=== PATIENT | female | born 1955 | race African-American/Black ===

== ENCOUNTER 2016-10-25 05:22 | Day surgery (SDC) | payer OTHER ==
[2016-10-18 14:43] VITALS: BMI 23.8
[2016-10-25] MEDS ORDERED: MIDAZOLAM HCL 2 MG/2 ML SINGLE DOSE VIAL ONE (10:03)
[2016-10-25] MEDS ORDERED: PROPOFOL 20 ML ONE (10:03)
[2016-10-25] MEDS ORDERED: ceFAZolin SODIUM 1 GM VIAL IVPB ONE (10:42)
[2016-10-25] MEDS ORDERED: ceFAZolin SODIUM 1 GM VIAL ONE (10:43)
[2016-10-25] MEDS ORDERED: ACETAMINOPHEN 1000 MG/100 ML VIAL (NON FORMULARY) IVPB ONE (10:47)
[2016-10-25] MEDS ORDERED: ONDANSETRON 4 MG/2 ML VIAL IVPUSH PRN (10:47)
[2016-10-25] MEDS ORDERED: ACETAMINOPHEN 1000 MG/100 ML VIAL (NON FORMULARY) IVPB PRN (10:47)
[2016-10-25] MEDS ORDERED: oxyCODONE HCL 5 MG TABLET PO PRN (10:47)
[2016-10-25] MEDS ORDERED: LACTATED RINGERS SOLUTION 1,000 ML IV SCH (11:00)
[2016-10-25] MEDS ORDERED: IBUPROFEN 400 MG TABLET (FP) PO PRN (11:14)
[2016-10-25 11:23] VITALS: TEMP 98.8
--- NOTE | 2016-10-25 11:26 | OP ---
DATE OF OPERATION: 10/25/2016 PREOPERATIVE DIAGNOSIS: Postmenopausal bleeding. POSTOPERATIVE DIAGNOSIS: Postmenopausal bleeding. SURGEON: Marko Dean MD ANESTHESIA: General. OPERATION: Hysteroscopy and dilatation and curettage. DESCRIPTION OF PROCEDURE: Patient was prepped and draped under general anesthesia in lithotomy position. Examination under anesthesia revealed vagina clean, cervix closed, was top normal, adnexa negative. During the procedure, weighted speculum applied in the vagina. Cervix grasped with tenaculum. Cervical canal was dilated up to number 31 Hegar. Uterine cavity was 8 cm. At this time, hysteroscopy was done with the help of saline media. Entire endocervical and endometrial cavity evaluated. There was some hyperplasia. After hysteroscopy finished then, first endocervical curetting was done. A small amount of tissue was removed. An endometrial curetting was done, and a moderate amount of tissue with a small polyp was removed. Estimated blood loss was 10 mL. Patient tolerated the procedure, was sent to recovery room in good condition. Ivan [id number]
[2016-10-25 14:36] VITALS: BP 105/60; PULSE 67
--- NOTE | 2016-10-28 11:46 | PATH ---
Surgical Pathology Report Patient Name: TATUM PEREZ [facility]. Rec. #: [id number] /Age/Gender: 1955 (Age: 61) / F Account: [id number] Location: [facility] Taken: 10/25/2016 Received: 10/25/2016 Reported: 10/28/2016 Physicians: Cha Dean M.D. Specimen(s) Received A: ENDOCERVICAL CURETTINGS B: ENDOMETRIAL CURETTINGS Clinical History Postmenopausal bleeding Final Diagnosis A. ENDOCERVIX, CURETTAGE: FRAGMENTS OF BENIGN ENDOCERVICAL TISSUE. FRAGMENTS OF BENIGN ENDOMETRIUM. B. ENDOMETRIUM, CURETTAGE: POLYPOID FRAGMENTS OF INACTIVE ENDOMETRIUM WITH DILATED GLANDS, DENSE STROMA AND PROMINENT BLOOD VESSELS, MOST CONSISTENT WITH FRAGMENTS OF ENDOMETRIAL POLYPS. SCANT FRAGMENTS OF BENIGN ENDOCERVICAL TISSUE. Electronically Signed Doug Johnson M.D. Gross Description A. Received in formalin labeled "endocervical curettings" is a 1.5 x 1.0 x 0.2 cm aggregate of blood-tinged mucus, possibly containing soft tissue fragments. The formalin is filtered and the specimen is entirely submitted in one cassette. B. Received in formalin labeled "endometrial curettings" is a 1.8 x 1.3 x 0.3 cm aggregate of eid-red soft tissue fragments. The formalin is filtered and the specimen is entirely submitted in one cassette. 10/25/2016 saudi10/25/2016
== END 2016-10-25 13:20 | disposition home or self-care (01) ==
LOC: JASU-SURG 05:22
PROVIDERS: ATTEND Obstetrics & Gynecology
PROC: 0UDB8ZX Extraction of Endometrium, Via Natural or Artificial Opening Endoscopic, Diagnostic (ICD-10-PCS; principal; 2016-10-25 10:00)
DX: N95.0 Postmenopausal bleeding (principal)
CPT/HCPCS: 86850; 86900; 86901; 88305-TC; 94760

== ENCOUNTER 2017-05-21 08:00 | Emergency (ER) | payer OTHER ==
[2017-05-21 08:10] VITALS: BMI 27.4
[2017-05-21 08:47] VITALS: TEMP 97.7
--- NOTE | 2017-05-21 08:49 | PDOC ---
History of Present Illness - General History Source: Patient Exam Limitations: No Limitations <Bandar Pederson - Last Filed: 05/21/17 11:32> <Herrera Forman - Last Filed: 05/21/17 14:55> - General Chief Complaint: Chest Pain Stated Complaint: CHEST PAIN Time Seen by Provider: 05/21/17 08:14 - History of Present Illness Initial Comments: 05/21/17 09:13 The patient is a 61 year old female, with a significant past medical history of HTN, who presents to the emergency department with chest pain. The patient reports having the acute onset of chest pain this morning after drinking green tea. The patient describes her pain as a burning sensation, ranking it a 5/10 in pain intensity. She denies recent fevers, chills, headache or dizziness. She denies recent nausea, vomit, diarrhea or constipation. She denies recent dysuria, frequency, urgency or hematuria. She denies shortness of breath. Allergies: NKA Past surgical history: None reported. Social history: Nonsmoker. Denies EtOH use and recreational drug use. (Bandar Pederson) Past History <Bandar Pederson - Last Filed: 05/21/17 11:32> - Past Medical History Anemia: No Asthma: No Cancer: No Cardiac Disorders: No CVA: No COPD: No CHF: No Dementia: No Diabetes: No GI Disorders: No Disorders: No HTN: Yes Hypercholesterolemia: Yes (borderline) Liver Disease: No Seizures: No Thyroid Disease: No - Suicide/Smoking/Psychosocial Hx Smoking History: Never smoked Have you smoked in the past 12 months: No Information on smoking cessation initiated: No Hx Alcohol Use: No Drug/Substance Use Hx: No Substance Use Type: None Hx Substance Use Treatment: No <Herrera Forman - Last Filed: 05/21/17 14:55> - Past Medical History Allergies/Adverse Reactions: Allergies Allergy/AdvReac Type Severity Reaction Status Date / Time No Known Allergies Allergy Verified 05/21/17 08:10 Home Medications: Ambulatory Orders Losartan Potassium 0 mg PO DAILY 10/18/16 Cardiac Specific PMH - Complaint Specific PMHX Pacemaker: No <Herrera Forman - Last Filed: 05/21/17 14:55> Review of Systems - Review of Systems Able to Perform ROS?: Yes <Bandar Pederson - Last Filed: 05/21/17 11:32> <Herrera Forman - Last Filed: 05/21/17 14:55> - Review of Systems Comments:: 05/21/17 09:14 GENERAL/CONSTITUTIONAL: No fever or chills. No weakness. HEAD, EYES, EARS, NOSE AND THROAT: No change in vision. No ear pain or discharge. No sore throat. CARDIOVASCULAR: +chest pain No: shortness of breath. RESPIRATORY: No cough, wheezing, or hemoptysis. GASTROINTESTINAL: No nausea, vomiting, diarrhea or constipation. GENITOURINARY: No dysuria, frequency, or change in urination. MUSCULOSKELETAL: No joint or muscle swelling or pain. No neck or back pain. SKIN: No rash NEUROLOGIC: No headache, vertigo, loss of consciousness, or change in strength/ sensation. ENDOCRINE: No increased thirst. No abnormal weight change. HEMATOLOGIC/LYMPHATIC: No anemia, easy bleeding, or history of blood clots. ALLERGIC/IMMUNOLOGIC: No hives or skin allergy. (Bandar Pederson) *Physical Exam <Bandar Pederson - Last Filed: 05/21/17 11:32> <Herrera Forman - Last Filed: 05/21/17 14:55> - Vital Signs Last Vital Signs Temp Pulse Resp BP Pulse Ox 97.7 F 65 18 134/68 100 05/21/17 08:06 05/21/17 12:19 05/21/17 12:19 05/21/17 12:19 05/21/17 12:19 - Physical Exam Comments: 05/21/17 09:14 GENERAL: Awake, alert, and fully oriented, in no acute distress HEAD: No signs of trauma EYES: PERRLA, EOMI, sclera anicteric, conjunctiva clear ENT: Auricles normal inspection, hearing grossly normal, nares patent, oropharynx clear without exudates. Moist mucosa NECK: Normal ROM, supple, no lymphadenopathy, JVD, or masses LUNGS: Breath sounds equal, clear to auscultation bilaterally. No wheezes, and no crackles HEART: Regular rate and rhythm, normal S1 and S2, no murmurs, rubs or gallops ABDOMEN: Soft, nontender, normoactive bowel sounds. No guarding, no rebound. No masses EXTREMITIES: Normal range of motion, no edema. No clubbing or cyanosis. No cords, erythema, or tenderness NEUROLOGICAL: Cranial nerves II through XII grossly intact. Normal speech, normal gait SKIN: Warm, Dry, normal turgor, no rashes or lesions noted (Bandar Pederson) Heart Score/ECG Review <Bandar Pederson - Last Filed: 05/21/17 11:32> - History History: Slightly suspicious - Electrocardiogram EKG: Normal - Age Age: 45-65 - Risk Factors Risk Factors Heart Score: Yes Hx Hypertension Based on the list above the patient has:: 1-2 risk factors - Troponin Troponin: </= normal limit - Score Heart Score - Total: 2 - ECG Intrepretation Rhythm: Regular Rhythm <Herrera Forman - Last Filed: 05/21/17 14:55> - ECG Impressions Comment:: 05/21/17 09:26 EKG impressions reported by : Normal EKG vent rate at 59bpm (Bandar Pederson) ED Treatment Course - LABORATORY CBC & Chemistry Diagram: 05/21/17 09:47 05/21/17 09:47 <Bandar Pederson - Last Filed: 05/21/17 11:32> - LABORATORY CBC & Chemistry Diagram: 05/21/17 09:47 05/21/17 09:47 <Herrera Forman - Last Filed: 05/21/17 14:55> - ADDITIONAL ORDERS Additional order review: Laboratory Results 05/21/17 05/21/17 05/21/17 13:30 09:47 09:47 PT with INR 11.90 H INR 1.05 Sodium 143 Potassium 3.6 Chloride 105 Carbon Dioxide 28 Anion Gap 10 BUN 15 Creatinine 0.7 Creat Clearance w eGFR > 60 Random Glucose 88 Calcium 9.7 Total Bilirubin 0.6 AST 15 ALT 17 Alkaline Phosphatase 81 Creatine Kinase 105 113 Troponin I < 0.02 < 0.02 Total Protein 8.7 H Albumin 4.1 05/21/17 09:47 RBC 4.14 MCV 88.7 MCHC 33.4 RDW 13.2 MPV 8.7 Neutrophils % 49.9 D Lymphocytes % 41.1 H Monocytes % 7.4 Eosinophils % 0.7 Basophils % 0.9 - RADIOLOGY Radiology Studies Ordered: Category Date Time Status CHEST X-RAY PORTABLE* [RAD] Stat Radiology 05/21/17 09:14 Completed Radiograph Interpretation: 05/21/17 11:32 CHEST X-RAY IMPRESSIONS BY : No evidence of active pulmonary disease. (Bandar Pederson) - Medications Given in the ED: ED Medications Discontinued Medications Generic Name Dose Route Start Last Admin Trade Name Freq PRN Reason Stop Dose Admin Al Hydroxide/Mg Hydroxide 30 ml 05/21/17 09:14 05/21/17 09:48 Mylanta Oral Suspension - PO 05/21/17 09:15 30 ml ONCE ONE Administration Nitroglycerin 1 inch 05/21/17 09:14 05/21/17 10:13 Nitro-Bid 2% Paste - TD 05/21/17 09:15 Not Given ONCE ONE Ranitidine HCl 150 mg 05/21/17 09:13 05/21/17 09:48 Zantac - PO 05/21/17 09:14 150 mg ONCE ONE Administration Medical Decision Making <Bandar Pederson - Last Filed: 05/21/17 11:32> <Herrera Forman - Last Filed: 05/21/17 14:55> - Medical Decision Making 05/21/17 10:29 After giving zantac and maalox patient's symptoms resolved, refused nitro. (Bandar Kenyon) 05/21/17 12:25 Patient is a 61-year-old female with history of hypertension will start who presented with substernal and epigastric chest burning that resolved after administration of Zantac and Maalox. In the ER, patient's EKG reveals no evidence of acute ischemia, chest x-ray reveals no evidence of cardiomegaly, no evidence of pneumothorax or infiltrate or effusion. pts heart score is noted to be 2. First set of cardiac enzymes is negative. I discussed the case with Dr. Javier of cardiology. Patient is safe for outpatient discharge for prompt evaluation in 24-48 hours. We'll repeat cardiac enzymes and if negative will discharge as planned. 05/21/17 14:54 2nd set of cardiac enzymes is wnl. will d/c. (Herrera Forman) *DC/Admit/Observation/Transfer <Bandar Pederson - Last Filed: 05/21/17 11:32> - Discharge Dispostion Admit: No <Herrera Forman - Last Filed: 05/21/17 14:55> Diagnosis at time of Disposition: Chest pain Qualifiers: Chest pain type: unspecified Qualified Code(s): R07.9 - Chest pain, unspecified - Discharge Dispostion Disposition: HOME Condition at time of disposition: Stable - Referrals Referrals: ON STAFF,NOT [Primary Care Provider] - Jose C Andrade MD [Staff Physician] - - Patient Instructions Printed Discharge Instructions: DI for Chest Pain - Post Discharge Activity - Attestations Scribe Attestion: 05/21/17 09:14 Documentation prepared by Bandar Pederson, acting as medical consultant for Herrera Forman MD/. (Bandar Pederson)
[2017-05-21] MEDS ORDERED: RANITIDINE HCL 150 MG TABLET (FP) PO ONE (09:13)
[2017-05-21] MEDS ORDERED: NITROGLYCERIN 2% OINTMENT - 1GM PACKET TD ONE (09:14)
[2017-05-21] MEDS ORDERED: MAG HYDROX/AL HYDROX/SIMETH 30 ML UNIT-DOSE CUP PO ONE (09:14)
[2017-05-21] MEDS ORDERED: RANITIDINE HCL 150 MG TABLET (FP) ONE (09:45)
[2017-05-21] MEDS ORDERED: MAG HYDROX/AL HYDROX/SIMETH 30 ML UNIT-DOSE CUP ONE (09:45)
[2017-05-21 09:52] LABS: BASO % 0.9 % (0-2.0); EOS % 0.7 % (0-4.5); HEMATOCRIT 36.8 % (32.4-45.2); HEMOGLOBIN 12.3 GM/dL (10.7-15.3); LYMPH % 41.1 % (8-40); MCH 29.6 pg (25.7-33.7); MCHC 33.4 g/dl (32.0-36.0); MEAN CELL VOLUME 88.7 fl (80-96); MEAN PLT VOLUME 8.7 fl (7.5-11.1); MONO % 7.4 % (3.8-10.2); NEUT % 49.9 % (42.8-82.8); PLATELET COUNT 246 K/MM3 (134-434); RBC 4.14 M/mm3 (3.60-5.2); RDW 13.2 % (11.6-15.6); WHITE BLOOD COUNT 6.4 K/mm3 (4.0-10.0)
[2017-05-21 10:15] LABS: INR 1.05 (0.82-1.09); PROTHROMBIN TIME (PATIENT) 11.9 SEC (9.98-11.88)
[2017-05-21 10:17] LABS: ALBUMIN 4.1 g/dl (3.4-5.0); ANION GAP 10 (8-16); BLOOD UREA NITROGEN 15 mg/dL (7-18); CALCIUM 9.7 mg/dL (8.5-10.1); CHLORIDE 105 mmol/L (98-107); CO2 28 mmol/L (21-32); GLUCOSE,RANDOM 88 mg/dL (74-106); POTASSIUM 3.6 mmol/L (3.5-5.1); SODIUM 143 mmol/L (136-145)
[2017-05-21 10:22] LABS: ALK PHOS 81 U/L (45-117); BILIRUBIN,TOTAL 0.6 mg/dL (0.2-1.0); CREATININE 0.7 mg/dL (0.55-1.02); SGOT/AST 15 U/L (15-37); SGPT/ALT 17 U/L (12-78); TOT PROT 8.7 g/dl (6.4-8.2)
--- NOTE | 2017-05-21 13:15 | EKG ---
Test Reason : Blood Pressure : / mmHG Vent. Rate : 059 BPM Atrial Rate : 059 BPM P-R Int : 174 ms QRS Dur : 082 ms QT Int : 436 ms P-R-T Axes : 050 006 018 degrees QTc Int : 431 ms SINUS BRADYCARDIA OTHERWISE NORMAL ECG WHEN COMPARED WITH ECG OF 18-OCT-2016 13:52, NO SIGNIFICANT CHANGE WAS FOUND Confirmed by DARIUSZ PEDERSEN MD ([id number]) on 05/21/2017 1:15:09 PM Referred By: Confirmed By:DARIUSZ PEDERSEN MD
[2017-05-21 15:25] VITALS: BP 112/65; PULSE 69
== END 2017-05-21 15:25 | disposition home or self-care (01) ==
LOC: JER 08:00
DX: R07.9 Chest pain, unspecified (principal); I10 Essential (primary) hypertension; E78.00 Pure hypercholesterolemia, unspecified
CPT/HCPCS: 36415; 71045-TC-FY; 80053; 82550; 84484; 85025; 85610; 93005; 93010; 99285-25

== ENCOUNTER 2017-09-03 05:12 | Day surgery (SDC) | payer OTHER ==
[2017-09-02 16:50] VITALS: BMI 23.3
[2017-09-03] MEDS ORDERED: MIDAZOLAM HCL 2 MG/2 ML SINGLE DOSE VIAL ONE (13:27)
[2017-09-03] MEDS ORDERED: DEXAMETHASONE SOD PHOSPHATE 4 MG/1 ML VIAL ONE (13:28)
[2017-09-03] MEDS ORDERED: LIDOCAINE HCL/PF 2% SDV 5ML VIAL ONE (13:28)
[2017-09-03] MEDS ORDERED: ceFAZolin SODIUM 1 GM VIAL IVPB ONE (13:50)
[2017-09-03] MEDS ORDERED: ceFAZolin SODIUM 1 GM VIAL ONE (13:59)
[2017-09-03] MEDS ORDERED: IBUPROFEN 400 MG TABLET (FP) PO PRN (14:22)
[2017-09-03] MEDS ORDERED: ACETAMINOPHEN 325 MG TABLET (FP) PO PRN (14:22)
[2017-09-03 16:36] VITALS: TEMP 98
[2017-09-03 19:26] VITALS: BP 136/67; PULSE 68
--- NOTE | 2017-09-04 06:55 | OP ---
DATE OF OPERATION: 09/03/2017 PREOPERATIVE DIAGNOSIS: Postmenopausal bleeding. POSTOPERATIVE DIAGNOSIS: Postmenopausal bleeding. SURGERY: Hysteroscopy and dilatation and curettage. SURGEON: Marko Dean MD ANESTHESIA: General. DESCRIPTION OF PROCEDURE: Once patient was prepped and draped under general anesthesia, examination under anesthesia revealed vagina spotting, cervix closed, corpus in top normal, adnexa negative. During the procedure, weighted speculum was applied in the vagina, cervix was grasped with tenaculum. Cervical canal was dilated up to 31 Hegar. Uterine cavity was 7 cm. At this time, hysteroscopy was done with the help of saline media. Entire endocervix and endometrial cavity were evaluated, and there was a polyp. After hysteroscopy was done, endocervical curetting was done, and a moderate amount of tissue and the polyp removed. Estimated blood loss 20 mL. Patient tolerated the procedure and was sent to recovery room in good condition. Ivan [id number]
--- NOTE | 2017-09-05 18:33 | PATH ---
Surgical Pathology Report Patient Name: TATUM PEREZ [facility]. Rec. #: [id number] /Age/Gender: 1955 (Age: 62) / F Account: [id number] Location: [facility] Taken: 09/03/2017 Received: 09/04/2017 Reported: 09/05/2017 Physicians: Cha Dean M.D. Specimen(s) Received A: ENDOCERVICAL CURETTINGS B: ENDOMETRIAL CURETTINGS AND POLYP Clinical History Postmenopausal bleeding Final Diagnosis A. ENDOCERVICAL CURETTINGS: FRAGMENTS OF ENDOCERVICAL TISSUE WITH SQUAMOUS METAPLASIA. B. ENDOMETRIAL CURETTINGS AND POLYP, EXCISIONAL BIOPSY: ENDOMETRIAL POLYP, FRAGMENTS. SCANTY UNREMARKABLE SUPERFICIAL ENDOMETRIAL GLANDS. Electronically Signed Ayush Pagan M.D. Gross Description A. Received in formalin labeled "endocervical curettings," is a 0.7 x 0.6 x 0.1 cm aggregate of eid-red soft tissue fragments admixed with mucus. The formalin is filtered and the specimen is entirely submitted in one cassette. B. Received in formalin labeled "endometrial curettings and polyps," is a 2.3 x 1.8 x 0.3 cm aggregate of eid-brown, irregular to polypoid soft tissue fragments. The formalin is filtered and the specimen is entirely submitted in one cassette. /09/04/201709/04/2017
== END 2017-09-03 17:10 | disposition home or self-care (01) ==
LOC: JASU-SURG 05:12
PROVIDERS: ATTEND Obstetrics & Gynecology
PROC: 0UDB7ZX Extraction of Endometrium, Via Natural or Artificial Opening, Diagnostic (ICD-10-PCS; principal; 2017-09-03 12:30)
PROC: 0UJD8ZZ Inspection of Uterus and Cervix, Via Natural or Artificial Opening Endoscopic (ICD-10-PCS; 2017-09-03 12:30)
DX: N95.0 Postmenopausal bleeding (principal)
CPT/HCPCS: 88305-TC; 94760